=== PATIENT | female | born 1960 | race African-American/Black ===

== ENCOUNTER → 2020-07-01 | Outpatient (REF) | LOC: M LAB 13:54 | PROVIDERS: ATTEND Nurse Practitioner Adult Health | DX: Z00.00 Encounter for general adult medical examination without abnormal findings (principal) ==

== ENCOUNTER 2020-10-05 10:34 | Emergency (ER) | payer OTHER ==
[~2020-10-05] VITALS: Ht 180.3 cm; Wt 98.9 kg
[2020-10-05] MEDS ORDERED: NORV5TAB PO (11:09)
[2020-10-05] MEDS ORDERED: IRON27TA2 PO (11:09)
[2020-10-05] MEDS ORDERED: LABE100T5 PO (11:10)
[2020-10-05] MEDS ORDERED: ALTA1CAP4 PO (11:10)
[2020-10-05 11:38] VITALS: BP 152/71
--- NOTE | 2020-10-05 12:13 | REP ---
INDICATION: Atraumatic pain COMPARISON: None. TECHNIQUE: Four views FINDINGS: Nrkc-uh-xjbssaid degenerative changes seen throughout the foot. There are plantar and retrocalcaneal heel spurs. There is no evidence of an acute fracture. IMPRESSION: Chronic changes <Electronically signed by Cornelius Blanca > 10/05/20 [id number]
[2020-10-05 13:50] LABS: BASO % 0.6 % (0.0-1.0); EOS # 0.3 10^3/uL (0.0-0.5); EOS % 6.1 % (0.0-3.0); HEMATOCRIT 38.5 % (36.0-47.0); HEMOGLOBIN 11.3 g/dl (12.0-15.5); LYMPH # 1.3 10^3/uL (1.5-5.0); MEAN CORPUSCULAR HEMOGLOBIN 22.9 pg (27.0-33.0); MEAN CORPUSCULAR HGB CONC 29.4 g/dl (32.0-36.5); MEAN CORPUSCULAR VOLUME 77.9 fl (80.0-96.0); MONO # 0.4 10^3/uL (0.0-0.8); MONO % 7.5 % (2.0-8.0); NEUTROPHILS % 59.4 % (36.0-66.0); PLATELET COUNT, AUTOMATED 288 10^3/uL (150-450); RED BLOOD COUNT 4.94 10^6/uL (4.00-5.40); WHITE BLOOD COUNT 5.1 10^3/uL (4.0-10.0)
[2020-10-05] MEDS ORDERED: KETOROLAC 60MG 2ML VIAL IM ONE (15:15)
== END 2020-10-05 20:31 | disposition home or self-care (01) ==
LOC: M ED 10:34
DX: M79.672 Pain in left foot (principal); I10 Essential (primary) hypertension; D64.9 Anemia, unspecified

== ENCOUNTER 2021-01-19 09:04 | Emergency (ER) | payer OTHER ==
[~2021-01-19] VITALS: Ht 180.3 cm; Wt 99.3 kg
[~2021-01-19 09:04] MED LIST: ALTA1CAP4 PO; IRON27TA2 PO; LABE100T5 PO; NORV5TAB PO
[2021-01-19 09:05] VITALS: BP 142/75
== END 2021-01-19 10:01 | disposition home or self-care (01) ==
LOC: M ED 09:04
DX: Z48.02 Encounter for removal of sutures (principal); I10 Essential (primary) hypertension